=== PATIENT | female | born 1975 | race Caucasian/White ===

== ENCOUNTER 2018-03-16 09:05 | Emergency (ER) | payer SELFPAY ==
[~2018-03-16] VITALS: Ht 165.1 cm; Wt 52.3 kg
[2018-03-16 09:27] VITALS: BP 142/80
== END 2018-03-16 11:03 | disposition home or self-care (01) ==
LOC: EMS 09:05
DX: S13.4XXA Sprain of ligaments of cervical spine, initial encounter (principal); V43.62XA Car passenger injured in collision with other type car in traffic accident, initial encounter; Y93.89 Activity, other specified; Y92.89 Other specified places as the place of occurrence of the external cause; Y99.8 Other external cause status